=== PATIENT | female | born 1970 | race Caucasian/White ===

== ENCOUNTER → 2018-07-04 | Outpatient (CLI) | payer OTHER | LOC: MC.RAD 06-12 14:00 | DX: Z12.31 Encounter for screening mammogram for malignant neoplasm of breast (principal) ==

== ENCOUNTER 2021-03-07 10:45 | Inpatient (IN) | payer BC ==
[~2021-03-07] VITALS: Ht 152.4 cm; Wt 92.6 kg
--- NOTE | 2021-03-07 12:30 | NUR ---
Patient to room 303 from the ED by wheelchair. A&Ox4. Independent in the room. VSS 4L NC O2, no reported SOB. Denies pain and discomfort. Droplet/contact precautions in place. Nurse oriented patient to covid unit/visitor policy. No further needs expressed. Call light within reach
[2021-03-07 12:36] LABS: BASO % 0.2 % (0.0-2.0); EOS % 0.2 % (0.0-4.0); GRAN # 4.7 K/mm3 (1.4-6.5); GRAN % 81.1 % (42.2-75.2); HEMATOCRIT 37.3 % (37.0-47.0); HEMOGLOBIN 12.9 g/dl (12.5-16.0); LYMPH # 0.7 K/mm3 (1.2-3.4); LYMPH % 12.4 % (20.0-51.0); MEAN CELL VOLUME 89 fl (80.0-100.0); MEAN CORPUSCULAR HEMOGLOBIN 31 pg (27-31); MEAN CORPUSCULAR HGB CONC 35 g/dl (33.0-37.0); MEAN PLATELET VOLUME 10.1 fl (7.4-10.4); MONO # 0.3 K/mm3 (0.1-0.6); MONO % 5.8 % (1.7-9.3); PLATELET COUNT 166 K/mm3 (130-400); REDCELL DISTRIBUTION WIDTH-CV 13.2 % (11.5-14.5)
[2021-03-07 12:50] LABS: ALBUMIN 2.8 gm/dL (3.5-5.0); BILIRUBIN,TOTAL 0.4 mg/dL (0.2-1.2); CALCIUM 7.7 mg/dL (8.4-10.2); CREATININE, serum 0.71 mg/dL (0.57-1.11); POTASSIUM 4.4 mmol/L (3.5-4.5); TOTAL PROTEIN 6.6 gm/dL (6.2-8.1)
[2021-03-07 14:42] VITALS: BP 121/70; PULSE 85; TEMP 98
[2021-03-07 15:46] LABS: COLLECTION METHOD CLEAN CATCH
[2021-03-07 15:53] LABS: MUCOUS Present (NOT PRESENT); PH 5 (5-8); SQUAMOUS EPITHELIAL 0-2 /hpf (0-10); URINE APPEARANCE Clear (CLEAR/HAZY); URINE BACTERIA None Seen /hpf (NONE SEEN); URINE BILIRUBIN Negative (NEGATIVE); URINE BLOOD Negative (NEGATIVE); URINE COLOR Yellow (YELLOW); URINE GLUCOSE Negative (NEGATIVE); URINE KETONE 1+ (NEGATIVE); URINE LEUKOCYTE ESTERASE Negative (NEGATIVE); URINE NITRATE Negative (NEGATIVE); URINE PROTEIN(semi-quant) 1+ (NEGATIVE); URINE RBC 0-2 /hpf (0-2); URINE UROBILINOGEN Negative (NEGATIVE)
[2021-03-07 16:42] VITALS: BP 121/84; PULSE 87; TEMP 99.3
--- NOTE | 2021-03-07 17:35 | NUR ---
Patient taken down for a CT. Has been sitting up in the recliner. A&Ox4. VSS 2L NC O2 denies SOB, intermittent cough. Independent in the room. Call light within reach.
--- NOTE | 2021-03-07 17:50 | NUR ---
Patient back from CT scan
[2021-03-07 19:43] VITALS: BP 112/66; PULSE 88; TEMP 98.8
[2021-03-07 23:46] VITALS: BP 123/70; PULSE 82; TEMP 99.2
--- NOTE | 2021-03-07 23:52 | NUR ---
ASSESSMENT COMPLETE. PT COOPERATIVE WITH CARES. PT RESTING IN HER RECLINER WATCHING TV AND TALKING ON THE PHONE. PT DENIES PAIN, PALPITATION, SOB OR DIZZINESS. PT DOES HAVE A PERSISTENT NONPRODUCTIVE COUGH. PT STATES SHE HAS NO OTHER NEEDS AT THIS TIME. CALL LIGHT WITHIN REACH.
[2021-03-08 03:31] VITALS: BP 139/82; PULSE 78; TEMP 98.6
[2021-03-08 06:41] LABS: HEMOGLOBIN 12.2 g/dl (12.5-16.0); MEAN CELL VOLUME 89 fl (80.0-100.0); MEAN CORPUSCULAR HEMOGLOBIN 30 pg (27-31); MEAN CORPUSCULAR HGB CONC 34 g/dl (33.0-37.0); MEAN PLATELET VOLUME 11.2 fl (7.4-10.4); PLATELET COUNT 196 K/mm3 (130-400); RED BLOOD COUNT 4.04 M/mm3 (4.10-5.30); REDCELL DISTRIBUTION WIDTH-CV 13.1 % (11.5-14.5)
[2021-03-08 06:49] LABS: HEMATOCRIT 35.8 % (37.0-47.0)
[2021-03-08 06:54] LABS: ALBUMIN 2.7 gm/dL (3.5-5.0); C-REACTIVE PROTEIN 13.01 mg/dL (0.00-0.50); CREATININE, serum 0.64 mg/dL (0.57-1.11); POTASSIUM 4.1 mmol/L (3.5-4.5); TOTAL PROTEIN 6.7 gm/dL (6.2-8.1)
--- NOTE | 2021-03-08 08:00 | NUR ---
Patient sitting up in the recliner, A&Ox4. VSS 3L, no reported SOB. Denies pain and discomfort. Indpendent in the room. Droplet/contact precautions in place. No further needs expressed. Call light within reach
[2021-03-08 08:03] LABS: BILIRUBIN,TOTAL 0.4 mg/dL (0.2-1.2)
[2021-03-08 08:25] LABS: BAND 8 % (0-10); LYMPHOCYTE 12 % (20.0-51.0); NEUTROPHILS 72 % (42.0-75.2); PLATELET ESTIMATE NORMAL (NORMAL)
--- NOTE | 2021-03-08 10:13 | NUR ---
Sw tried to call pt via phone due to covid+19 to complete intake, with no success.
[2021-03-08 11:11] VITALS: BP 116/65; PULSE 74; TEMP 98.2
[2021-03-08 17:03] VITALS: BP 129/74; PULSE 81; TEMP 97.9
--- NOTE | 2021-03-08 17:25 | NUR ---
Patient had an uneventful day. A&Ox4. VSS 2L NC O2, no reported SOB. Denies pain and discomfort. Independent in the room. Droplet/contact precautions in place. No further needs expressed. Call light within reach
[2021-03-08 19:34] VITALS: BP 137/73; PULSE 85; TEMP 97.7
[2021-03-09 00:03] VITALS: BP 123/77; PULSE 73; TEMP 98.3
--- NOTE | 2021-03-09 06:00 | NUR ---
ASSESSMENT COMPLETE FOR THIS SHIFT. PT COOPERATIVE WITH CARES. PT RESTING IN BED WATCHING TV WHEN I CAME IN TO DO HER ASSESSMENT. RT TITRATED PT DOWN FROM 2L OF O2 TO RA. PT HAD A HARD TIME MAINTAINING HER STATS ABOVE 90% ON RA. PT PLACED BACK ON 2L. PT ENCOURAGE AND WAS USING HER SPIROMETER, WHILE I WAS IN HER ROOM DOING HER ASSESSMENT. PT DENIED PAIN, PALPITATIONS, SOB OR DIZZINESS. PT SEEMED TO COUGH LESS THIS SHIFT, THEN LAST NIGHT. PT STATES SHE HAS NO OTHER NEEDS AT THIS TIME. CALL LIGHT WITHIN REACH.
[2021-03-09 08:00] VITALS: BP 123/63; PULSE 70; TEMP 97.9
--- NOTE | 2021-03-09 08:10 | NUR ---
PT HAS FLAT AFFECT, AOX4, REPORTS DIARRHEA BUT NO N/V, ASSESSMENT PERFORMED, MEDICATIONS GIVEN, CALL LGT WITHIN REACH, DENIES PAIN
--- NOTE | 2021-03-09 09:43 | NUR ---
The patient is COVID positive. SW contacted the patient's room phone to discuss discharge plan. The patient lives in [place] with her , Jeffrey (ph#[phone]). She reports independence with ADLs and does not have any DME. The patient's PCP is Dr. Justus Vega and she receives her medications from [facility]. The patient does not have a DPOA-HC in EMR, but she states that she does have one completed and that it designates her and the alternate is her son, Mariano. The patient's next of kin is her . The patient plans on returning home with her upon discharge. She is currently requiring 2 liters of oxygen. SW to continue to monitor. *Discharge plan: home with *
[2021-03-09 11:13] VITALS: BP 119/67; PULSE 72; TEMP 98
[2021-03-09 16:41] VITALS: BP 120/6; BP 120/60; PULSE 75; TEMP 98.2
--- NOTE | 2021-03-09 18:14 | NUR ---
PT AOX4, NEW IV STARTED TO LH 22G, RH INT REMOVED, REMDESEVIR INFUSED, NO OTHER NEEDS, DINNER DELIVERED, UNEVENTFUL SHIFT
--- NOTE | 2021-03-09 20:30 | NUR ---
Assessment completed, alert/ oriented, vital signs stable/ afebrile at this time, denies pain, denies resp.difficulty while at rest, good air exchange bilaterally but does have some crackles lungs bases, remains on 2L. oxygen, heart RRR, distal pusles are palpable, up in recliner and independent in her room, denies needs at this time
[2021-03-10 00:11] VITALS: BP 141/80; PULSE 75; TEMP 98.2
[2021-03-10 04:36] VITALS: BP 140/92; PULSE 70; TEMP 98.5
[2021-03-10 07:48] LABS: C-REACTIVE PROTEIN 2.58 mg/dL (0.00-0.50); CALCIUM 8.1 mg/dL (8.4-10.2); CREATININE, serum 0.67 mg/dL (0.57-1.11); MAGNESIUM 2.2 mg/dL (1.6-2.6); POTASSIUM 4.1 mmol/L (3.5-4.5)
[2021-03-10 07:57] LABS: HEMOGLOBIN 12.1 g/dl (12.5-16.0); MEAN CELL VOLUME 91 fl (80.0-100.0); MEAN CORPUSCULAR HEMOGLOBIN 30 pg (27-31); MEAN CORPUSCULAR HGB CONC 34 g/dl (33.0-37.0); MEAN PLATELET VOLUME 10.9 fl (7.4-10.4); RED BLOOD COUNT 3.99 M/mm3 (4.10-5.30); REDCELL DISTRIBUTION WIDTH-CV 13.6 % (11.5-14.5)
[2021-03-10 07:58] LABS: HEMATOCRIT 36.1 % (37.0-47.0); PLATELET COUNT 308 K/mm3 (130-400)
[2021-03-10 08:05] VITALS: BP 105/82; PULSE 70; TEMP 97.9
[2021-03-10 09:23] LABS: BAND 6 % (0-10); LYMPHOCYTE 14 % (20.0-51.0); NEUTROPHILS 74 % (42.0-75.2); PLATELET ESTIMATE NORMAL (NORMAL)
--- NOTE | 2021-03-10 10:21 | NUR ---
PT RESTING IN BED. MORNING MEDICATIONS GIVEN. SHIFT ASSESSMENT COMPLETED. DENIES ANY PAIN. IS CURRENTLY ON 1L VIA NC. EAGER TO GO HOME. WILL CONTINUE TO MONITOR.
[2021-03-10 12:21] VITALS: BP 134/77; PULSE 71; TEMP 98.5
[2021-03-10 16:30] VITALS: BP 154/85; PULSE 81; TEMP 98.5
--- NOTE | 2021-03-10 21:00 | NUR ---
Initial shift assessment done- denies pain, states some SOB with exertion, VSS, o2 sats 93% on 2L/nc, informed pt of order for covid swab- pt not happy about that- doesnt understand the reasoning-- she did let me get the swab, states she glad shes going home tomorrow-
[2021-03-10 21:04] VITALS: BP 112/78; PULSE 74; TEMP 98.1
[2021-03-11 00:13] VITALS: BP 132/73; PULSE 70; TEMP 97.7
[2021-03-11 04:21] VITALS: BP 143/82; PULSE 75; TEMP 98
--- NOTE | 2021-03-11 04:29 | NUR ---
Quiet night- o2 sats 91-97% on the 2 L/nc, covid swab sent earlier did come back positive- Thalia OCASIO and warehouse team member aware,
[2021-03-11 08:04] VITALS: BP 119/70; PULSE 73; TEMP 97.5
--- NOTE | 2021-03-11 09:11 | NUR ---
PT RESTING IN BED. MORNING MEDICATIONS GIVEN. SHIFT ASSESSMENT COMPLETED. DENIES ANY PAIN OR NEEDS. PRN O2 AT 2L VIA NC. EAGER TO GO HOME, EXPLAINED PLAN FOR THE DAY. WILL CONTINUE TO MONITOR.
--- NOTE | 2021-03-11 09:44 | NUR ---
An exercise oximetry was ordered. RT notified SW that the patient did not qualify for oxygen. The patient is to tentatively discharge later today. No additional needs at this time.
[2021-03-11] MEDS ORDERED: DECADRON6 MG PO (09:58)
[2021-03-11 10:08] LABS: ALBUMIN 2.6 gm/dL (3.5-5.0); BILIRUBIN,DIRECT 0.3 mg/dL (0.0-0.5); BILIRUBIN,TOTAL 0.5 mg/dL (0.2-1.2)
[2021-03-11 11:55] VITALS: BP 144/85; PULSE 82; TEMP 98.3
== END 2021-03-11 16:28 | disposition home or self-care (01) | DRG 177 ==
LOC: COL.ER 10:45 → MEDICAL 13:32
PROVIDERS: Internal Medicine; Personal Emergency Response Attendant; Student in an Organized Health Care Education/Training Program; ADMIT Internal Medicine
PROC: XW033E5 Introduction of Remdesivir Anti-infective into Peripheral Vein, Percutaneous Approach, New Technology Group 5 (ICD-10-PCS; principal; 2021-03-07)
DX: U07.1 COVID-19 (principal); J12.82 Pneumonia due to coronavirus disease 2019; J96.01 Acute respiratory failure with hypoxia; K52.1 Toxic gastroenteritis and colitis; L74.3 Miliaria, unspecified; T36.95XA Adverse effect of unspecified systemic antibiotic, initial encounter; Z88.0 Allergy status to penicillin
CPT/HCPCS: 99222-AI; 99232-AI; 99233-AI; 99239; J0456; J0696; J1100; J1650; J7030; J7050; J8540; Q9967

== ENCOUNTER 2021-03-12 05:39 | Emergency (ER) | payer BC ==
[~2021-03-12] VITALS: Ht 152.4 cm; Wt 90.9 kg
[~2021-03-12 05:39] MED LIST: DECADRON6 MG PO
[2021-03-12 05:51] VITALS: TEMP 97.7
[2021-03-12 07:43] LABS: HEMOGLOBIN 13.5 g/dl (12.5-16.0); MEAN CELL VOLUME 87 fl (80.0-100.0); MEAN CORPUSCULAR HEMOGLOBIN 30 pg (27-31); MEAN CORPUSCULAR HGB CONC 35 g/dl (33.0-37.0); PLATELET COUNT 403 K/mm3 (130-400); RED BLOOD COUNT 4.46 M/mm3 (4.10-5.30)
[2021-03-12 07:44] LABS: MEAN PLATELET VOLUME 9.6 fl (7.4-10.4)
[2021-03-12 08:01] LABS: ALBUMIN 2.8 gm/dL (3.5-5.0); BILIRUBIN,TOTAL 0.8 mg/dL (0.2-1.2); CALCIUM 8.3 mg/dL (8.4-10.2); CREATININE, serum 0.67 mg/dL (0.57-1.11); POTASSIUM 3.7 mmol/L (3.5-4.5); TOTAL PROTEIN 6.6 gm/dL (6.2-8.1)
[2021-03-12 08:13] LABS: BAND 2 % (0-10); LYMPHOCYTE 8 % (20.0-51.0); NEUTROPHILS 85 % (42.0-75.2); PLATELET ESTIMATE NORMAL (NORMAL)
[2021-03-12 12:45] LABS: INR 1.4 (0.8-3.0); PROTHROMBIN TIME 15.4 SECONDS (9.7-12.8)
[2021-03-12 12:48] LABS: PARTIAL THROMBOPLASTIN TIME 22.1 SECONDS (26.0-37.0)
[2021-03-12 16:00] VITALS: BP 210/109; PULSE 80
== END 2021-03-12 16:20 | disposition short-term general hospital (02) ==
LOC: COL.ER 05:39
PROVIDERS: Emergency Medicine; Personal Emergency Response Attendant
DX: I63.89 Other cerebral infarction (principal); Z86.16 Personal history of COVID-19
CPT/HCPCS: A4314; A9585; J1100; J2405; J2550; J2765; J7030; Q9967

== ENCOUNTER → 2021-05-04 | Outpatient (RCR) | payer BC | END | disposition home or self-care (01) | LOC: MKS.ESL.PT | DX: I69.354 Hemiplegia and hemiparesis following cerebral infarction affecting left non-dominant side (principal) ==

== ENCOUNTER 2021-05-19 16:00 | Outpatient (RCR) | payer BC | END 2021-05-25 11:45 | disposition home or self-care (01) | LOC: MKS.ESL.PT 16:00 | DX: I69.354 Hemiplegia and hemiparesis following cerebral infarction affecting left non-dominant side (principal) ==